=== PATIENT | female | born 1995 | race Caucasian/White ===

== ENCOUNTER 2021-09-03 22:50 | Emergency (ER) | payer OTHER ==
[2021-09-04 01:04] LABS: Absolute Lymphocytes (CBC) 2.3 K/uL (0.7-4.9); Hematocrit 36.3 % (36.0-45.0); Lymphocytes % 30.3 % (15.3-44.8); MPV 9.2 fL (7.6-11.3); RBC Red Blood Cell Count 4.28 M/uL (3.86-4.86)
[2021-09-04 01:07] LABS: Protime INR 1.07
[2021-09-04 01:16] LABS: Potassium 3.6 mmol/L (3.5-5.1)
[2021-09-04] MEDS ORDERED: ACETAMINOPHEN 325 MG TABLET ONE (01:33)
[2021-09-04 02:21] LABS: Urine Blood Negative (Negative); Urine Glucose Negative (Negative); Urine Protein Negative (Negative); Urine Specific Gravity 1.015 (1.005-1.030)
--- NOTE | 2021-09-04 03:43 | ER ---
Nurse's Notes [facility] Name: Baylee Abbott Age: 26 yrs Sex: Female : 1995 Arrival Date: 09/03/2021 Time: 22:54 Bed 14 Private MD: Diagnosis: Post-hysterectomy vaginal bleeding, uncomplicated Presentation: 09/03 23:17 Chief complaint: Patient states: The patient is bleed from her vagina since 2114. She st1 has a total hysterectomy 08/25/2021 in [place], [place]. Coronavirus screen: Vaccine status: Patient reports receiving the 2nd dose of the covid vaccine. Aneumed. Ebola Screen: No symptoms or risks identified at this time. Initial Sepsis Screen: Does the patient meet any 2 criteria? No. Patient's initial sepsis screen is negative. Does the patient have a suspected source of infection? No. Patient's initial sepsis screen is negative. Risk Assessment: Do you want to hurt yourself or someone else? Patient reports no desire to harm self or others. Onset of symptoms was September 03, 2021. 23:17 Method Of Arrival: Wheelchair st1 23:17 Acuity: ASTRID 3 st1 Triage Assessment: 23:21 General: Appears in no apparent distress. uncomfortable, Behavior is calm, agitated. st1 Pain: Complains of pain in Lower abdomen and vagina Pain does not radiate. Pain currently is 8 out of 10 on a pain scale. Quality of pain is described as pressure, sharp, stabbing. 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 - Social history:: Smoking status: Patient reports the use of cigarette tobacco products, 1 pod of vape per day , Patient/guardian denies using alcohol, street drugs, IV drugs. - Family history:: not pertinent. - Hospitalizations: : No recent hospitalization is reported. Screenin:28 Abuse screen: Denies threats or abuse. Abuse screen: Denies threats or abuse. st1 Nutritional screening: No deficits noted. Tuberculosis screening: No symptoms or risk factors identified. Fall Risk None identified. No fall in past 12 months (0 pts). No secondary diagnosis (0 pts). No IV (0 pts). Ambulatory Aid- None/Bed Rest/Nurse Assist (0 pts). Gait- Weak (10 pts.). Mental Status- Oriented to own ability (0 pts). Total Garzon Fall Scale indicates Low Risk Score (25-44 pts). Assessment: 23:28 Reassessment: Please see triage note. st1 09/04 00:37 General: Appears in no apparent distress. comfortable, Behavior is cooperative, lg3 anxious. Neuro: No deficits noted. Level of Consciousness is awake, alert, obeys commands, Oriented to person, place, time, situation. Cardiovascular: No deficits noted. Denies chest pain, shortness of breath. Respiratory: No deficits noted. Airway is patent Trachea midline Respiratory effort is even, unlabored, Respiratory pattern is regular, symmetrical. GI: No deficits noted. Abdomen is round non-distended, obese. : No deficits noted. No signs and/or symptoms were reported regarding the genitourinary system. EENT: No deficits noted. No signs and/or symptoms were reported regarding the EENT system. Derm: Skin is intact, is healthy with good turgor, Skin is dry, post surgical incisions noted to abdomen. Musculoskeletal: No deficits noted. No signs and/or symptoms reported regarding the musculoskeletal system. Circulation, motion, and sensation intact. Capillary refill < 3 seconds, Range of motion: intact in all extremities. 00:37 Pain: Complains of pain in vaginal area Pain at worst was 8.5 out of 10 on a pain lg3 scale. Is intermittent. 02:31 Reassessment: Patient appears in no apparent distress at this time. Patient and/or lg3 family updated on plan of care and expected duration. Pain level reassessed. Patient is alert, oriented x 3, equal unlabored respirations, skin warm/dry/pink. 03:51 Reassessment: Patient appears in no apparent distress at this time. No changes from lg3 previously documented assessment. Patient and/or family updated on plan of care and expected duration. Pain level reassessed. Patient is alert, oriented x 3, equal unlabored respirations, skin warm/dry/pink. Patient states symptoms have improved. Vital Signs: 09/03 23:17 Weight 158.76 kg; Height 5 ft. 9 in. (175.26 cm); Pain 8/10; st1 23:23 BP 122 / 77; Pulse 103; Resp 16; Temp 98.2; Pulse Ox 99% on R/A; st1 03 02:32 BP 122 / 82; Pulse 92; Resp 17; Pulse Ox 100% on R/A; lg3 03:50 BP 134 / 86; Pulse 101; Resp 17; Pulse Ox 100% on R/A; lg3 09/03 23:17 Body Mass Index 51.69 (158.76 kg, 175.26 cm) st1 ED Course: 09/03 22:54 Patient arrived in ED. jj6 23:19 Triage completed. st1 23:21 Arm band placed on. st1 23:28 Patient has correct armband on for positive identification. Placed in gown. Bed in low st1 position. Call light in reach. Side rails up X 1. case monitor on. Pulse ox on. 23:42 Alejandro Hartley MD is Attending Physician. rn 09/04 00:06 Candace Dominguez, CHARLES is Primary Nurse. lg3 00:51 Inserted saline lock: 22 gauge in left antecubital area, using aseptic technique. Blood lg3 collected. 00:52 CBC with Automated Diff Sent. lg3 00:52 Protime (+inr) Sent. lg3 00:53 Ptt, Activated Sent. lg3 00:53 Basic Metabolic Panel Sent. lg3 00:53 CBC with Diff Sent. lg3 02:00 CT Abd/Pelvis - IV Contrast Only In Process Unspecified. EDMS 02:33 Assist provider with pelvic exam: Set up pelvic tray. Performed by Alejandro Hartley MD lg3 Patient tolerated well. 03:51 IV discontinued, intact, bleeding controlled, No redness/swelling at site. Pressure lg3 dressing applied. Administered Medications: 01:56 Drug: Tylenol 325 mg Route: PO; lg3 01:56 Follow up: Response: No adverse reaction lg3 Outcome: 03:42 Discharge ordered by . rn 03:51 Discharged to home ambulatory, with family. lg3 03:51 Condition: stable 03:51 Discharge instructions given to patient, Instructed on discharge instructions. 03:52 Patient left the ED. lg3 Signatures: Dispatcher [employer] Alejandro Cordero MD MD rn Gibson, Lacie RN RN lg3 Gilma Miranda jj6 Margarita Estrada RN RN st1 Corrections: (The following items were deleted from the chart) 02:31 Reassessment: Patient appears in no apparent distress at this time. Patient lg3 and/or family updated on plan of care and expected duration. Pain level reassessed. Patient is alert, oriented x 3, equal unlabored respirations, skin warm/dry/pink. assisted provider with vaginal exam at this time. lg3 02:31 Reassessment: Patient appears in no apparent distress at this time. Patient lg3 and/or family updated on plan of care and expected duration. Pain level reassessed. Patient is alert, oriented x 3, equal unlabored respirations, skin warm/dry/pink. assisted provider with vaginal exam at this time. lg3
--- NOTE | 2021-09-04 03:43 | EDPHYS ---
Physician Documentation [facility] Name: Baylee Abbott Age: 26 yrs Sex: Female : 1995 Arrival Date: 09/03/2021 Time: 22:54 Bed 14 Private MD: ED Physician Alejandro Hartley HPI: 09/04 00:55 This 26 yrs old Female presents to ER via Wheelchair with complaints of Post weed burner Bleeding, Partial Hysterectomy 9 days post op, abnormal bleeding.. 00:55 The patient presents with vaginal bleeding that is light, with no clots. Onset: The rn symptoms/episode began/occurred just prior to arrival. Modifying factors: The symptoms are alleviated by nothing, the symptoms are aggravated by nothing. Severity of symptoms: At their worst the symptoms were mild, in the emergency department the symptoms have improved. The patient has not experienced similar symptoms in the past. The patient has been recently seen by a physician:. Pt reports total hysterectomy 9 days ago, is here on vacation, denies trauma, was sitting a lot today. Sat on toilet and when wiped, noticed some vaginal bleeding. Denies any spont bleeding prior to this episode, and denies any current bleeding. Reports abdomen sore since surgery, no worsening lately. . 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 - Social history:: Smoking status: Patient reports the use of cigarette tobacco products, 1 pod of vape per day , Patient/guardian denies using alcohol, street drugs, IV drugs. - Family history:: not pertinent. - Hospitalizations: : No recent hospitalization is reported. ROS: 09/04 00:55 Constitutional: Negative for fever, chills, and weight loss, Eyes: Negative for injury, rn pain, redness, and discharge, Neck: Negative for injury, pain, and swelling, Cardiovascular: Negative for chest pain, palpitations, and edema, Respiratory: Negative for shortness of breath, cough, wheezing, and pleuritic chest pain, Abdomen/GI: + lower abd soreness, negative for blood in stool, negative for vomiting/diarrhea Back: Negative for injury and pain, : + vaginal bleeding MS/Extremity: Negative for injury and deformity, Skin: Negative for injury, rash, and discoloration, Neuro: Negative for headache, weakness, numbness, tingling, and seizure. Exam: 00:55 Constitutional: This is a well developed, well nourished patient who is awake, alert, rn and in no acute distress. Joking entire time I was in the room. Head/Face: Normocephalic, atraumatic. Eyes: Pupils equal round and reactive to light, extra-ocular motions intact. Normal conjunctivae Cardiovascular: Regular rate and rhythm. No pulse deficits. Respiratory: No increased work of breathing, no retractions or nasal flaring. Abdomen/GI: Soft, non-tender, non-distended Pelvic Exam: Normal external genitalia. Speculum exam with no blood in vault, no tenderness. Skin: Warm, dry MS/ Extremity: Pulses equal, no cyanosis. Neuro: Awake and alert, GCS 15 Vital Signs: 09/03 23:17 Weight 158.76 kg; Height 5 ft. 9 in. (175.26 cm); Pain 8/10; st1 23:23 BP 122 / 77; Pulse 103; Resp 16; Temp 98.2; Pulse Ox 99% on R/A; st1 09/04 02:32 BP 122 / 82; Pulse 92; Resp 17; Pulse Ox 100% on R/A; lg3 03:50 BP 134 / 86; Pulse 101; Resp 17; Pulse Ox 100% on R/A; lg3 09/03 23:17 Body Mass Index 51.69 (158.76 kg, 175.26 cm) st1 MDM: 09/03 23:42 Patient medically screened. rn 09/04 01:16 ED course: No further episodes of vaginal bleeding while here. Labs and ct pending.. rn 02:32 Differential diagnosis: urinary tract infection, post-surgical bleeding. Data reviewed: rn vital signs, nurses notes, lab test result(s), and as a result, I will discharge patient. Counseling: I had a detailed discussion with the patient and/or guardian regarding: the historical points, exam findings, and any diagnostic results supporting the discharge/admit diagnosis, lab results, the need for outpatient follow up, to return to the emergency department if symptoms worsen or persist or if there are any questions or concerns that arise at home. ED course: Still no further bleeding since arrival, has used bathroom and ambulatory without passing anymore blood. Pelvic exam normal without blood in vault. Will dc home after CT abdomen returns as I do not expect any acute findings given cessation of blood and normal abdominal and vaginal exam. . 02:37 ED course: Pelvic exam performed with nurse as forms analyst. . rn 03:34 ED course: Still waiting on radiology report/result.. rn 03:42 ED course: No acute findings on CT abdomen/pelvis. rn 09/03 23:52 Order name: CBC with Diff rn 09/03 23:52 Order name: Basic Metabolic Panel; Complete Time: 01:17 rn 09/03 23:52 Order name: Protime (+inr); Complete Time: 01:17 rn 09/03 23:52 Order name: Ptt, Activated; Complete Time: 01:17 rn 09/03 23:53 Order name: CBC with Automated Diff; Complete Time: 01:17 EDMA 09/04 02:20 Order name: Urine Dipstick-Ancillary; Complete Time: 03:31 EDMA 09/03 23:52 Order name: IV Start; Complete Time: 00:53 rn 09/03 23:52 Order name: CT Abd/Pelvis - IV Contrast Only rn 09/03 23:52 Order name: Cardiac monitoring; Complete Time: 02:32 rn 09/04 02:14 Order name: Urine Dipstick-Ancillary (obtain specimen); Complete Time: 02:15 lg3 Administered Medications: 01:56 Drug: Tylenol 325 mg Route: PO; lg3 01:56 Follow up: Response: No adverse reaction lg3 Disposition Summary: 09/04/21 03:42 Discharge Ordered Location: Home rn Problem: new rn Symptoms: have improved rn Condition: Stable rn Diagnosis - Post-hysterectomy vaginal bleeding, uncomplicated rn Followup: rn - With: Private Physician - When: 5 - 6 days - Reason: Recheck today's complaints, Re-evaluation by your physician Discharge Instructions: - Discharge Summary Sheet rn - Hysterectomy Information rn - Hysteroscopy, Care After rn Forms: - Medication Reconciliation Form rn - Thank You Letter rn - Antibiotic real estate attorney - Prescription Opioid Use rn Signatures: Dispatcher [employer] EDMS Alejandro Hartley MD MD rn Gibson, Lacie, RN RN lg3 Margarita Estrada, CHARLES RN st1 Zayda Kaur PA PA sb3 Corrections: (The following items were deleted from the chart) 02:31 00:55 Constitutional: This is a well developed, well nourished patient who is awake, rn alert, and in no acute distress. Joking entire time I was in the room. Head/Face: Normocephalic, atraumatic. Eyes: Pupils equal round and reactive to light, extra-ocular motions intact. Normal conjunctivae Cardiovascular: Regular rate and rhythm. No pulse deficits. Respiratory: No increased work of breathing, no retractions or nasal flaring. Abdomen/GI: Soft, non-tender, non-distended Skin: Warm, dry MS/ Extremity: Pulses equal, no cyanosis. Neuro: Awake and alert, GCS 15 rn
[2021-09-04 04:06] VITALS: TEMP 98.2
[2021-09-04 04:07] VITALS: O2SAT 100
[2021-09-04 04:08] VITALS: BP 134/86
--- NOTE | 2021-09-04 21:29 | RAD REPORT ---
EXAM DESCRIPTION: CT ABDOMEN PELVIS WITH IV CONTRAST Exam date: September 04, 2021 COMPARISON: None CLINICAL HISTORY: Postsurgical abdominal pain, hysterectomy, vaginal bleeding TECHNIQUE: Multiple helical axial images were obtained through the abdomen and pelvis using intraven ous contrast. Coronal and sagittal reformatted images were obtained. All CT scans at this facility use dose modulation, iterative reconstruction, and/or weight-based dosi ng when appropriate to reduce radiation dose to as low as reasonably achievable. FINDINGS: Lung bases: Appear unremarkable. Liver: Homogenous attenuation is noted. Gallbladder/biliary: Cholecystectomy changes are present. No significant biliary ductal dilatation. Pancreas: Unremarkable. No evidence of ductal enlargement. Spleen: Appears unremarkable. No splenomegaly. Adrenals: Unremarkable. Kidneys and ureters: No evidence of hydronephrosis. Normal enhancement. Bladder: Unremarkable. Pelvic organs: Post hysterectomy changes are present. Bowel: No evidence of bowel obstruction. No bowel wall thickening. Appendix appears unremarkable. Vasculature: Unremarkable. Peritoneum: No free air. There is trace free fluid in the pelvis. Lymph nodes: Unremarkable. Soft tissues: Tiny fat-containing umbilical hernia is present. Bones: Unremarkable. IMPRESSION: No evidence for an acute process within the abdomen or pelvis. Electronically signed by: Austin Travis MD 09/04/2021 3:06 AM TRIMMING INSPECTOR Due to temporary technical issues with the PACS/Fluency reporting system, reports are being signed by the in house radiologists without review as a courtesy to insure prompt reporting. The interpreting radiologist is fully responsible for the content of the report.
== END 2021-09-04 03:52 | disposition home or self-care (01) ==
LOC: ER 22:50
DX: N99.820 Postprocedural hemorrhage of a genitourinary system organ or structure following a genitourinary system procedure (principal); Z90.711 Acquired absence of uterus with remaining cervical stump; Z72.0 Tobacco use; Z88.3 Allergy status to other anti-infective agents; Z88.8 Allergy status to other drugs, medicaments and biological substances
CPT/HCPCS: 85025; 80048; 36415; 85610; 85730; 81003; 74177; 99284; Q9967